=== PATIENT | male | born 1935 | race Caucasian/White ===

== ENCOUNTER 2016-08-18 10:56 | Observation (INO) | payer MEDICARE, OTHER ==
--- NOTE | ~2016-08-18 | CO ---
Unit #: [id number] #: [id number] Patient: JUANITA FALLON [id number] [address] [place], [place] [address] [id number] MR#: [id number] NAME: JUANITA FALLON ROOM: 560 Age: 81 Sex: M Admission Date: 08/18/2016 : 1935 Attending Physician: Everett Duval M.D. Primary Care Physician: uJnito Nieves M.D. Consultation Date: 08/20/2016 CONSULTATION REPORT REASON FOR CONSULTATION Midsternal chest pain and shortness of breath and new congestive heart failure. HISTORY OF PRESENT ILLNESS This is an 81-year-old white male, who is known to Dr. Ruvalcaba in our office, who has permanent atrial fibrillation, is on Pradaxa, was diagnosed this past May after having a small stroke with minimal residual, has hypertension, anemia, peripheral neuropathy. His last echo shows LVEF of 53% with no significant valvular disease. He has peripheral neuropathy. The patient said he woke up yesterday morning and had midsternal pain and it was worse when he took a deep breath and then he said later in the morning, he could not even every time he tried to take in a deep breath, it became more painful and he felt like he had increased shortness of breath. The patient said that he has been feeling like he has like a head cold and has been having some sinus drainage to clear phlegm. He denies any fever or chills. The patient said that throughout the morning, the chest pain and shortness of breath progressively worsened. He denies any pain up in his neck, bilateral jaws, shoulders, arms, or elbow. He denies that the pain radiates through to the back. Though he has had no change in his weight, he is having some lower extremity edema, but he says that is not unusual. In the emergency room, the patient's blood pressure was 129/63, his O2 saturation was 99% on room air, heart rate 89. CT of the chest for PE protocol was done and showed no PE, but bolus timing was apparently suboptimal. The patient has mentioned he has been on Pradaxa for a few weeks for his atrial fibrillation. According to the patient, he saw Dr. Ruvalcaba in April and the plan is to be on Pradaxa for few weeks and then come in later this month for setting up of cardioversion. The patient's chest x-ray showed low inspiratory volumes, but no visible infiltrate. His BNP was 144. Initial cardiac enzymes are negative. The patient was given a dose of IV Lasix to trial and he did have a good urinary output and it seemed to have improved his symptoms. The patient was also given an aspirin after his CT was obtained and Cardiology has been asked to assist with evaluation and management. PAST MEDICAL HISTORY 1. Permanent atrial fibrillation was diagnosed in 04/2016, had a small stroke back in April and was diagnosed with atrial fibrillation at that time and was started on Pradaxa. 2. Hyperlipidemia. 3. Hypertension. Unit #: [id number] #: [id number] Patient: JUANITA FALLON 4. BPH. 5. Anemia. 6. History of vertigo. 7. Peripheral neuropathy. 8. History of some type gait disturbance. 9. 03/04/2016, 2D echo, LVEF of 50% to 53%. No significant valvular disease. 10. Osteoarthritis. 11. Restless legs syndrome. 12. Shingles 3 years ago. Continues on acyclovir. 13. In 2006, had a normal stress test. 14. Obesity, 273 pounds with a BMI of 32. PAST SURGICAL HISTORY 1. Right knee replacement. 2. Cholecystectomy. 3. Left shoulder surgery. 4. Left knee surgery. HOME MEDICATIONS Zovirax 400 mg p.o. daily, Lipitor 20 mg p.o. daily, Pradaxa 150 mg p.o. b.i.d., vitamin B12 of 500 mcg p.o. daily, Mirapex 0.125 mg p.o. b.i.d. ALLERGIES No known drug allergies. SOCIAL HISTORY The patient lives with spouse. The patient has to use a cane, sometimes a walker. No tobacco, alcohol, or illicit drug abuse. FAMILY HISTORY His mother at the age of 94 with some type of cancer. His father had a stroke and at the age of 71. REVIEW OF SYSTEMS See details in HPI. PHYSICAL EXAMINATION GENERAL: Mr. Fallon is an 81-year-old white male, in no acute respiratory distress. He is awake, alert, and oriented. VITAL SIGNS: Blood pressure currently is 131/80, heart rate is 76, respirations 18, temperature 97.3, O2 saturations 95% on room air. NECK: Trachea midline. No thyromegaly or lymphadenopathy. Normal carotid upstrokes. No jugular venous distention. HEART: S1, S2. Regular rate and rhythm. No clicks, murmurs, or rubs. LUNGS: Slightly diminished, otherwise clear. ABDOMEN: Obese, soft, nontender. Positive bowel sounds present. EXTREMITIES: Pedal pulses are palpable. 1+ pedal edema. DIAGNOSTIC STUDIES LABORATORY RESULTS: Glucose is 224, BUN 18, creatinine 0.7, eGFR is above 60, sodium 140, potassium 3.8, chloride 103, CO2 of 25, calcium is 9.0, total protein 6.5, albumin 3.2, bilirubin total 0.7, AST 22, ALT 23, alkaline phosphatase is 73. WBCs 13.8, hemoglobin 12.7, hematocrit 37.7, and platelets 251. Initial cardiac enzymes; CK-MB is 1.3, troponin less than 0.05; CK-MB is 1.9, troponin less than 0.05. INR is 1.4. IMAGING STUDIES: CT of the chest for PE protocol shows suboptimal Unit #: [id number] #: [id number] Patient: LOFINK,JUANITA opacification of the pulmonary arteries. The central pulmonary arteries are normal. No filling defects to suggest pulmonary emboli. Normal aorta and cardiac chambers, some bibasilar interstitial change could represent atelectasis or bibasilar edema and benign hepatic cyst. Chest x-ray shows lungs are clear, low lung volumes. CARDIOVASCULAR STUDIES: EKG shows atrial fibrillation, ventricular rate 85 beats per minute, questionable Q-wave in V1, poor R-wave progression, also questionable Q-wave in inferior leads. IMPRESSION 1. Acute dyspnea. 2. Acute new systolic/diastolic congestive heart failure. Last 2D echo in 02/2016 shows left ventricular ejection fraction of 53%. No significant valvular disease. 3. Permanent atrial fibrillation, on Pradaxa. 4. Previous stroke, minimal residual, started on Pradaxa back in 04/2016. 5. Hypertension. 6. Hyperlipidemia. 7. Benign prostatic hypertrophy. 8. Anemia. 9. Vertigo. 10. Peripheral neuropathy. 11. Obesity. PLAN 1. The patient was started on IV Lasix and had a significant output even though his BNP was only 144. His chest x-ray did not show anything and no acute edema. It was felt like that he was in congestive heart failure due to his symptoms, which has improved since he has been started on diuresis and in addition his lower extremity swelling has diminished. We will provide the patient with CHF education. 2. We will optimize CHF medications. The patient has not been on any blood pressure medication in the past or any medication for heart rate control for his AFib, but will start him and initiate on carvedilol 3.125 mg p.o. b.i.d. and also lisinopril 2.5 mg p.o. daily. Repeat 2D echo here has been done and has technically limited, but however, LVEF appeared to be 40% to 45% which is slightly decreased from his last echo back in February of last year which showed LVEF of 53%. We will start the patient on KAROLYN inhibitor a very low dose and tell the patient to monitor for any dizziness or any extreme weakness to call the office for adjustments. 3. We will change the patient over to oral Lasix 40 mg p.o. daily. Also supplement with potassium supplement. 4. The patient's chest pain is eased off. He says his breathing has improved. He is feeling almost back to baseline and the plans are the patient is discharged home. He was to see Dr. Ruvalcaba next week on 08/28/2016. However, it has been since 2006 since he had ischemic heart disease workup, we will schedule the patient for an outpatient Lexiscan Cardiolite stress test before his cardioversion. That will be done through our office and I explained to the patient and the spouse that our office staff will call for instructions. 5. Cardiac rehab has been consulted for his new congestive heart failure and atrial fibrillation. 6. Discussed with the patient healthy lifestyle changes and modification and weight loss. Get on a weight loss program and healthy heart diet and try to exercise and that is why another reason that we consulted the Unit #: [id number] #: [id number] Patient: JUANITA FALLON cardiac rehab. 7. Further recommendations pending per Dr. Castro. Thank you very much for allowing to assist in his care. Dictated by... Trisha Jimenez/regine TD: 08/21/2016 01:48 JOB #: [id number] CONSULTATION REPORT X Eileen Martinez APRN CONSULTATION REPORT
--- NOTE | ~2016-08-18 | CR72 ---
[facility] A Service of [facility] & [facility] RADIOLOGY TEXT RESULTS PATIENT: JUANITA HERNANDEZ LOCATION: [facility] 560-01 : 35 UNIT #: [id number] AGE: [address]: Lillie Jara MD SEX: M ORDER DR: [id number] [address] [address] [id number] MR#: [id number] Acc #: [id number] NAME: JUANITA HERNANDEZ : 1935 SEX: M STUDY DATE/TIME: 08/18/2016 11:42 UNIT: SED ROOM: STUDY DESCRIPTION: CR Chest Single View Portable Attending Physician: Enmanuel Jiang M.D. Ordering Physician: Enmanuel Jiang M.D. Primary Care Physician: Junito Nieves M.D. MEDICAL IMAGING REPORT This report is preliminary unless electronic signature is present. EXAM Portable chest, 08/18/2016. HISTORY Shortness of air and chest pain with deep breathing since 5:30 this morning. COMPARISON STUDIES 06/17/2016 FINDINGS A portable view of the chest was obtained. The heart size and vascularity are normal. The lungs appear clear. There are low lung volumes. The bones are normal. IMPRESSION The study is limited by low inspiratory volume and by patient size. No infiltrates are visible. Dictated by... Conner Hall M.D. THIS IS AN ELECTRONICALLY VERIFIED REPORT Conner Hall M.D. at 08/19/2016 7:13 AM Judith TD: 08/18/2016 18:28 JOB #: [id number] MEDICAL IMAGING REPORT
--- NOTE | ~2016-08-18 | HP ---
Unit #: [id number] #: [id number] Patient: JUANITA HERNANDEZ [id number] [address] [place], [place] [address] [id number] I MR#: [id number] NAME: JUANITA HERNANDEZ ROOM: 560 Age: 81 Sex: M Admission Date: 08/18/2016 : 1935 Attending Physician: Lillie Jara M.D. Primary Care Physician: Junito Nieves M.D. HISTORY AND PHYSICAL CHIEF COMPLAINT Short of breath. HISTORY OF PRESENT ILLNESS The patient is an 81-year-old male with a past medical history of atrial fibrillation, chronic anticoagulation, hyperlipidemia, neuropathy, history of nephrolithiasis, BPH, osteoarthritis, and TIAs, who presented to the emergency department at [facility] for evaluation of the above. The patient states that he was in his usual state of health until the morning of admission around 5:30 when he experienced sharp chest pain with deep breathing. He states that he has had some drainage for the past month with an associated occasional cough. He denies any fever. He states that he has had chest pain in the mid chest with breathing. He states that it is exacerbated by deep breathing, and there are no alleviating factors. He denies any vomiting or diarrhea. No change in his weight and no lower extremity swelling. He is on Pradaxa for atrial fibrillation which he has been taking as prescribed. Upon arrival in the emergency department at [facility] his pulse was 89, blood pressure 129/63, and oxygen saturation was 99% on room air. A CT of the chest, PE protocol, was done and showed no central PE but bolus timing was apparently suboptimal. He was transferred to [facility] for further evaluation and treatment. PAST MEDICAL HISTORY 1. Admission to [facility] in February 2016 for TIA. The patient states that he was diagnosed with atrial fibrillation during that admission and was placed on Pradaxa. 2. Admission to [facility] October 09-2008, for right knee surgery. He apparently had a TIA postoperatively. 3. Atrial fibrillation followed by Dr. Ruvalcaba, maintained on chronic anticoagulation with Pradaxa. 4. Transient ischemic attack. 5. Nephrolithiasis. 6. Benign prostatic hypertrophy. 7. Neuropathy. 8. Vertigo. 9. Osteoarthritis. 10. Hyperlipidemia. PAST SURGICAL HISTORY Unit #: [id number] #: [id number] Patient: JUANITA HERNANDEZ 1. Bilateral knee surgery. 2. Cholecystectomy. SOCIAL HISTORY The patient lives with his . He has a cane and a walker. There is no tobacco use. FAMILY HISTORY Notable for his mother dying at the age of 94. She had cancer. His father had a stroke and at the age of 71. ALLERGIES No known allergies. HOME MEDICATIONS 1. Zovirax. 2. Lipitor. 3. Pradaxa. 4. Vitamin B12. Home medications will need to be reviewed and verified. REVIEW OF SYSTEMS A complete review of systems is negative except as indicated in the History of Present Illness. PHYSICAL EXAMINATION VITAL SIGNS: Temperature is 97.8, pulse 89, respirations 18, blood pressure 129/63, and oxygen saturation is 99% on room air. GENERAL: Patient is a very pleasant male who is awake, alert, and in no acute distress. HEENT: Head is atraumatic. Mucous membranes are moist. NECK: Supple. Trachea is midline. CARDIOVASCULAR: Irregular. LUNGS: Clear to auscultation bilaterally with no increased work of breathing. ABDOMEN: Soft and nontender with bowel sounds present in all four quadrants. EXTREMITIES: Nontender with no pedal edema. NEUROLOGIC: Patient is awake and alert. He follows commands. PSYCHIATRIC: Mood and affect are normal. Patient is cooperative. SKIN: Skin of examined areas is warm and dry. DIAGNOSTIC STUDIES LABORATORY: Complete blood count is essentially normal. INR is 1.4. Comprehensive metabolic panel notable for a glucose of 162 and albumin is 3.4. BNP is 144. Troponin is less than 0.05. IMAGING: Chest x-ray shows low inspiratory volumes but no visible infiltrate. CT of the chest, PE protocol, had suboptimal bolus timing but showed no central PE. CARDIOLOGY: EKG shows atrial fibrillation with a rate of 85 beats per minute. ASSESSMENT The patient is an 81-year-old male with: 1. Chest pain, pleuritic in nature. The patient had a CT of the chest, Unit #: [id number] #: [id number] Patient: JUANITA HERNANDEZ pulmonary embolism protocol, that showed no central pulmonary embolism. He is on chronic anticoagulation with Pradaxa that he has been taking as prescribed. 2. Atrial fibrillation, currently rate controlled, followed by Dr. Ruvalcaba. 3. Chronic anticoagulation with Pradaxa. 4. Hyperlipidemia. 5. Neuropathy. 6. History of nephrolithiasis. 7. History of transient ischemic attack. 8. Benign prostatic hypertrophy. 9. Osteoarthritis. PLAN 1. Admit to intermediate level for observation. 2. Healthy heart diet. 3. Supplemental oxygen 2-4 liters to maintain saturations greater than 92%. 4. Check V/Q scan. 5. P.r.n. Tylenol. 6. Serial cardiac enzymes. 7. Fasting lipid panel. 8. Repeat labs in the morning. 9. Additional workup and consultants based on above. 1. Dictated by Erik Mcknight/george TD: 08/18/2016 20:38 JOB #: [id number] HISTORY AND PHYSICAL X Lillie Jara MD X HISTORY AND PHYSICAL
--- NOTE | ~2016-08-18 | DS ---
Unit #: [id number] #: [id number] Patient: JUANITA HERNANDEZ [id number] [address] [place], [place] [address] [id number] I MR#: [id number] NAME: JUANITA HERNANDEZ ROOM: 560 Age: 81 Sex: M Admission Date: 08/18/2016 : 1935 Discharge Date: 08/20/2016 Attending Physician: Everett Duval M.D. Primary Care Physician: Junito Nieves M.D. DISCHARGE SUMMARY DISCHARGE DIAGNOSES 1. Acute systolic heart failure. 2. Dyspnea. 3. Atypical chest pain. 4. Atrial fibrillation on chronic anticoagulation. HOSPITAL COURSE Patient is an 81-year-old male who presented to [facility] emergency department with complaint of shortness of breath. It was associated with some chest discomfort and significant orthopnea. Patient initially underwent CT, PE protocol, that showed no PE and major vessels though was noted to have a suboptimal bolus timing. Patient was admitted for worsening shortness of breath and his complaint of chest pain. Upon evaluation by me, the patient appeared in some significant respiratory distress though oxygen saturations were good. I ordered a 2D echo, which revealed left ventricular systolic function that was mildly reduced with an EF of 40% to 45%. The patient denied any history of congestive heart failure and the patient was given 40 mg of IV Lasix, which greatly helped his symptoms. Approximately six hours later, the dose of Lasix was repeated and, ultimately, the patient was able to lie flat without difficulties. Given the new diagnosis of heart failure, cardiology consult was obtained. Cardiology started the patient on an outpatient regimen of medications for his heart failure. He was also set up for outpatient followup for stress testing. Additionally, there was a plan for an outpatient DC cardioversion as well. This cardioversion had been previously scheduled. DISCHARGE MEDICATIONS 1. Pradaxa 150 mg p.o. b.i.d. 2. Mirapex 0.15 mg p.o. b.i.d. 3. Zovirax 400 mg daily. 4. Lipitor 20 mg daily. 5. Vitamin B12 500 mcg daily. 6. Lisinopril 2.5 mg daily. 7. Coreg 3.125 mg p.o. b.i.d. 8. Lasix 40 mg p.o. daily. 9. Potassium chloride 20 mEq p.o. daily. FOLLOWUP Patient should follow up with Dr. Ruvalcaba on August 28 at 3:00 p.m. There has also been a cardiac rehab consult placed with appointment to be determined. Unit #: [id number] #: [id number] Patient: JUANITA HERNANDEZ Dictated by... Erik Hilliard/ed TD: 08/21/2016 06:13 JOB #: [id number] DISCHARGE SUMMARY X Everett Duval MD X DISCHARGE SUMMARY
--- NOTE | ~2016-08-18 | EKG ---
PATIENT: JUANITA HERNANDEZ UNIT #: [id number] Ventricular Rate: 85 BPM Atrial Rate: 375 BPM QRS Duration: 74 ms Q-T Interval: 342 ms QTC Calculation(Bezet): 406 ms Calculated R [place]: -8 degrees Calculated T [place]: 38 degrees Diagnosis Line: Atrial fibrillation Diagnosis Line: Low voltage QRS Diagnosis Line: Abnormal ECG Diagnosis Line: When compared with ECG of 09-MAR-2016 09:46, Diagnosis Line: Nonspecific T wave abnormality no longer evident Diagnosis Line: in Lateral leads Diagnosis Line: Confirmed by ALIZE FRANCIS MD ([id number]) on Diagnosis Line: 10/02/2016 7:00:02 AM INTERPRETING : AMAURY
--- NOTE | ~2016-08-18 | CT16 ---
[facility] A Service of [facility] & [facility] RADIOLOGY TEXT RESULTS PATIENT: JUANITA HERNANDEZ LOCATION: C5 560-01 : 35 UNIT #: [id number] AGE: [address]: Everett Duval MD SEX: M ORDER DR: [id number] [address] [address] [id number] E MR#: [id number] Acc #: [id number] NAME: JUANITA HERNANDEZ : 1935 SEX: M STUDY DATE/TIME: 08/18/2016 1201 UNIT: SED ROOM: STUDY DESCRIPTION: CT Angio Chest for PE Attending Physician: Enmanuel Jiang M.D. Ordering Physician: Enmanuel [id number] Apolinar Jiang Primary Care Physician: Junito Nieves M.D. MEDICAL IMAGING REPORT This report is preliminary unless electronic signature is present. EXAM CT angiogram of the chest for PE protocol 08/18/2016 1201 hours HISTORY 81-year-old man complaining of shortness of air and chest pain with deep inspiration since 0530 hours today. Wheezing and extreme shortness of air. COMPARISON 08/18/[address] scan TECHNIQUE Dynamic helical CT angiographic images were obtained from the thoracic inlet through the adrenal glands. 3-D sagittal and coronal reconstructions were performed. Contrast was Isovue-370 100 mL IV. Total exam DLP 858 mGy-cm. This CT exam was performed with one or more of the following radiation dose reduction techniques: automatic exposure control, adjustment of mA and/or kV according to patient size, and iterative reconstruction. FINDINGS Images through the thoracic inlet demonstrate no thyroid mass or supraclavicular adenopathy. Images through the chest demonstrate moderately good opacification of the central pulmonary arteries. The peripheral pulmonary arteries are not well opacified and evaluation is limited. The pulmonary arteries are normal in caliber. No central filling defects are seen to suggest the presence of pulmonary emboli. Peripheral small clots cannot be excluded given this technique. The aorta is normal in caliber. There is no pathologic mediastinal, hilar or axillary adenopathy. The lung window images demonstrate basilar vascular crowding with linear interstitial change at the left lung base greater than right lung base. [facility] A Service of [facility] & [facility] RADIOLOGY TEXT RESULTS PATIENT: JUANITA HERNANDEZ LOCATION: C5B 560-01 : 35 UNIT #: [id number] AGE: [address]: Everett Duval MD SEX: M ORDER DR: Atelectasis is favored over edema or pneumonia. There is no definite pleural effusion. Benign calcified granulomatous changes are present. The upper lungs are clear of acute densities. Limited views through the upper abdomen demonstrate benign hepatic cysts in the liver. The spleen is normal in size. There is fatty atrophy of the pancreas without acute inflammation. Cholecystectomy change. The adrenal glands are normal. IMPRESSION 1. There is suboptimal opacification of the pulmonary arteries. The central pulmonary arteries are normal in caliber with no filling defects to suggest the presence of pulmonary emboli. It is difficult or impossible to evaluate the peripheral vessels particularly at the lung bases. There is no suggestion of clot. 2. Normal caliber aorta and cardiac chambers. 3. There is bibasilar interstitial change which could represent atelectasis or basilar edema. There is no dense airspace opacity or pleural fluid. 4. Benign hepatic cysts. 5. Cholecystectomy change. 6. Diffuse fatty atrophy of the pancreas. STAT * RESULT Dictated by... Hellen Kumar M.D. THIS IS AN ELECTRONICALLY VERIFIED REPORT Hellen Kumar M.D. at 08/19/2016 9:25 AM Denisse TD: 08/18/2016 12:52 JOB #: [id number] MEDICAL IMAGING REPORT
[~2016-08-18 10:56] MED LIST: ACYCLOVIR PO; ALBUTEROL20 ml INH; ASPIRIN PO; ASPIRIN81 M1 PO; ASPIRINEC PO; AVODART0.5 MG PO; B-12500 MCG PO; BAYER CHEWABLE81 MG PO; BPH MED; CHOL MED; COUMADIN PO; DOCUSATE SODIU100 MG PO; FLOMAX0.4 M1 PO; LIPITOR20 MG PO; LOVASTATIN PO; MEVACOR PO; MULTI-VITAMIN1 TAB PO; NORCO 5/325 TAB1 TAB PO; PERCOCET5/325 PO; PRADAXA150 MG PO; PREDNISONE PO; TAMSULOSIN PO; TESSALON PERLE100 M1 DOB; UROXATRAL10 MG PO; VITAMIN C PO; VOLTAREN50 MG PO; ZOVIRAX800 MG PO
[2016-08-18 11:11] LABS: BASOPHIL% 0.4 % (0-2.5); DIFF IND NO; EOSINOPHIL# 0.1 X10e3 (0-0.7); EOSINOPHIL% 0.7 % (0.0-7.0); HEMATOCRIT 40.3 % (38.0-50.0); HEMOGLOBIN 13.5 gm/dL (13.0-16.0); LYMPHOCYTE# 0.9 X10e3 (1.0-3.5); LYMPHOCYTE% 9.2 % (17.0-45.0); MEAN CELL VOLUME 90.6 FL (83-96); MEAN CORPUSCULAR HEMOGLOBIN 30.4 PG (28-34); MEAN CORPUSCULAR HGB CONC 33.6 g/dL (30-36); MEAN PLATELET VOLUME 6.8 FL (6.5-11.5); MONOCYTE# 0.7 X10e3 (0-1.0); MONOCYTE% 7.5 % (3.0-12.0); NEUTROPHIL# 7.7 X10e3 (1.5-7.1); NEUTROPHIL% 82.2 % (40-75); PLATELET COUNT 218 X10e3 (140-420); RED BLOOD COUNT 4.44 X10e (3.90-5.60); RED CELL DISTRIBUTION WIDTH 14.5 % (11.0-15.5); WHITE BLOOD COUNT 9.3 X10e3 (4.0-10.5)
[2016-08-18 11:25] LABS: INR 1.4; PROTHROMBIN TIME (PATIENT) 15.6 SECONDS (9.5-12.4)
[2016-08-18 11:32] LABS: PARTIAL THROMBOPLASTIN TIME 60.3 SECONDS (25.6-38.1)
[2016-08-18 11:34] LABS: ALBUMIN SERUM 3.4 g/dL (3.5-5.0); ALKALINE PHOSPHATASE 75 U/L (32-92); ALT (SGPT) 18 U/L (10-40); AST (SGOT) 21 U/L (10-42); BILIRUBIN, DIRECT 0.2 mg/dL (0.0-0.2); BILIRUBIN,INDIRECT 0.9 mg/dL (0.0-0.9); BILIRUBIN,TOTAL 1.1 mg/dL (0.2-2.0); BLOOD UREA NITROGEN 12 mg/dL (9-23); CALCIUM SERUM 8.5 mg/dL (8.4-10.2); CARBON DIOXIDE 27 mmol/L (22-31); CHLORIDE 104 mmol/L (100-111); CREATININE SERUM 0.8 mg/dL (0.6-1.4); GLOM FILT RATE Estimated ABOVE60 mL/min (>60); GLUCOSE FASTING 162 mg/dL (70-110); POTASSIUM 4.1 mmol/L (3.5-5.1); PROTEIN TOTAL SERUM 6.9 g/dL (6.0-8.3); SODIUM 136 mmol/L (135-145)
[2016-08-18 12:34] LABS: POC - CKMB 1.9 ng/mL (0.0-7.9); POC - TROPONIN <0.05 ng/mL (<=0.05)
[2016-08-18 13:14] LABS: POC - CKMB 1.3 ng/mL (0.0-7.9); POC - MYOGLOBIN 89.7 ng/mL (0.0-169.0); POC - TROPONIN <0.05 ng/mL (<=0.05)
[2016-08-18] MEDS ORDERED: MIRAPEX0.125 MG PO (21:15)
[2016-08-18 23:51] LABS: CK TOTAL 37 IU/L (36-174)
[2016-08-19 04:27] LABS: HEMATOCRIT 37.3 % (38.0-50.0); HEMOGLOBIN 12.8 gm/dL (13.0-16.0); MEAN CELL VOLUME 89.3 FL (83-96); MEAN CORPUSCULAR HEMOGLOBIN 30.6 PG (28-34); MEAN CORPUSCULAR HGB CONC 34.2 g/dL (30-36); MEAN PLATELET VOLUME 6.7 FL (6.5-11.5); RED BLOOD COUNT 4.17 X10e (3.90-5.60); RED CELL DISTRIBUTION WIDTH 14.5 % (11.0-15.5); WHITE BLOOD COUNT 11.9 X10e3 (4.0-10.5)
[2016-08-19 07:53] LABS: ALBUMIN SERUM 3.2 g/dL (3.5-5.0); ALKALINE PHOSPHATASE 73 U/L (32-92); ALT (SGPT) 16 U/L (10-40); AST (SGOT) 20 U/L (10-42); BILIRUBIN,TOTAL 1.5 mg/dL (0.2-2.0); BLOOD UREA NITROGEN 18 mg/dL (9-23); CALCIUM SERUM 8.4 mg/dL (8.4-10.2); CARBON DIOXIDE 24 mmol/L (22-31); CHLORIDE 108 mmol/L (100-111); CK TOTAL 37 IU/L (36-174); CREATININE SERUM 0.8 mg/dL (0.6-1.4); GLOM FILT RATE Estimated ABOVE60 mL/min (>60); GLUCOSE FASTING 134 mg/dL (70-110); POTASSIUM 3.8 mmol/L (3.5-5.1); PROTEIN TOTAL SERUM 6.2 g/dL (6.0-8.3); SODIUM 134 mmol/L (135-145)
[2016-08-20 08:04] LABS: HEMATOCRIT 37.7 % (38.0-50.0); HEMOGLOBIN 12.7 gm/dL (13.0-16.0); MEAN CORPUSCULAR HEMOGLOBIN 29.9 PG (28-34); MEAN CORPUSCULAR HGB CONC 33.6 g/dL (30-36); RED BLOOD COUNT 4.24 X10e (3.90-5.60); RED CELL DISTRIBUTION WIDTH 14.3 % (11.0-15.5); WHITE BLOOD COUNT 13.8 X10e3 (4.0-10.5)
[2016-08-20 08:41] LABS: ALBUMIN SERUM 3.2 g/dL (3.5-5.0); ALKALINE PHOSPHATASE 73 U/L (32-92); ALT (SGPT) 23 U/L (10-40); AST (SGOT) 22 U/L (10-42); BILIRUBIN,TOTAL 0.7 mg/dL (0.2-2.0); BLOOD UREA NITROGEN 18 mg/dL (9-23); BUN/CREATININE RATIO 25.71; CARBON DIOXIDE 25 mmol/L (22-31); CHLORIDE 103 mmol/L (100-111); CREATININE SERUM 0.7 mg/dL (0.6-1.4); GLOM FILT RATE Estimated ABOVE60 mL/min (>60); GLUCOSE FASTING 224 mg/dL (70-110); POTASSIUM 3.8 mmol/L (3.5-5.1); PROTEIN TOTAL SERUM 6.5 g/dL (6.0-8.3); SODIUM 140 mmol/L (135-145)
[2016-08-20] MEDS ORDERED: LASIX PO (14:32)
[2016-08-20] MEDS ORDERED: LISINOPRIL2.5 MG PO (14:33)
[2016-08-20] MEDS ORDERED: COREG3.125 MG PO (14:33)
[2016-08-20] MEDS ORDERED: K-DUR20 ME1 PO (14:33)
== END 2016-08-20 15:23 | disposition home or self-care (01) ==
LOC: SED 10:56 → C5B 19:00
PROVIDERS: Emergency Medicine; Family Medicine; Internal Medicine
DX: I11.0 Hypertensive heart disease with heart failure (principal); I50.21 Acute systolic (congestive) heart failure; I48.2 Chronic atrial fibrillation; Z79.01 Long term (current) use of anticoagulants; R06.00 Dyspnea, unspecified; R07.89 Other chest pain; Z23 Encounter for immunization; E78.5 Hyperlipidemia, unspecified; N40.0 Benign prostatic hyperplasia without lower urinary tract symptoms; E66.9 Obesity, unspecified; Z68.32 Body mass index [BMI] 32.0-32.9, adult; Z80.9 Family history of malignant neoplasm, unspecified; Z82.3 Family history of stroke; Z90.49 Acquired absence of other specified parts of digestive tract; G62.9 Polyneuropathy, unspecified; M19.90 Unspecified osteoarthritis, unspecified site; Z86.73 Personal history of transient ischemic attack (TIA), and cerebral infarction without residual deficits
CPT/HCPCS: 36415; 71010; 71275; 80048; 80053; 80076; 82550; 82553; 83874; 83880; 84484; 85025; 85027; 85610; 85730; 90732; 93005; 93306; 96374; 96375; 96376; 99285; G0009; G0378; J1885; J1940; J2930; Q9967

== ENCOUNTER → 2016-08-25 | Outpatient (CLI) | payer MEDICARE, OTHER ==
[~2016-08-25] MED LIST changes: +COREG3.125 MG PO; +K-DUR20 ME1 PO; +LASIX PO; +LISINOPRIL2.5 MG PO; +MIRAPEX0.125 MG PO
--- NOTE | ~2016-08-25 | TH ---
Unit #: [id number] #: [id number] Patient: JUANITA HERNANDEZ [id number] [address] [address] [id number] MR#: [id number] NAME: JUANITA HERNANDEZ : 1935 SEX: M STUDY DATE/TIME: UNIT: [facility] ROOM: STUDY DESCRIPTION: Lexiscan stress test - Nuclear Attending Physician: Joy Castro M.D. Referring Physician: Joy Castro M.D. Primary Care Physician: Junito Nieves M.D. CARDIOLOGY REPORT PROCEDURE PERFORMED Lexiscan Cardiolite stress test - Nuclear portion. PROCEDURE Using technetium 99m-labeled Cardiolite, rest and stress SPECT images were obtained. Multiple SPECT images were obtained in various views, including horizontal and vertical long axis and short axis views of the left ventricle. Images were obtained by gated SPECT method. The patient was administered 10.63 mCi of Cardiolite at rest. The patient was administered 33.9 mCi of Cardiolite after Lexiscan infusion was completed. On the stress images, there is normal perfusion noted. The rest images show normal perfusion. Comparing the rest and stress images, there is no stress-induced ischemia noted. The left ventricular ejection fraction is calculated to be 63%. There is no focal wall motion abnormality seen. CONCLUSION 1. No stress-induced ischemia noted. 2. The left ventricular ejection fraction is calculated to be 63%. 3. There is no focal wall motion abnormality seen. 4. The left ventricular size is small. 5. Normal Lexiscan Cardiolite stress test. Dictated by... Erik Velázquez/gunner TD: 08/27/2016 08:14 JOB #: [id number] CARDIOLOGY REPORT X Joy Castro MD <ELECTRONICALLY SIGNED> 01/03/17 1429 CARDIOLOGY REPORT
--- NOTE | ~2016-08-25 | ST ---
Unit #: [id number] #: [id number] Patient: JUANITA HERNANDEZ [id number] [address] [address] [id number] O MR#: [id number] NAME: JUANITA HERNANDEZ : 1935 SEX: M STUDY DATE/TIME: 08/25/2016 UNIT: [facility] ROOM: STUDY DESCRIPTION: Lexiscan stress test Attending Physician: Joy Castro M.D. Referring Physician: Joy Castro M.D. Primary Care Physician: Junito Nieves M.D. CARDIOLOGY REPORT PROCEDURE PERFORMED EKG portion of a Lexiscan Cardiolite stress test. REASON FOR EXAM Atrial fibrillation. DISCUSSION Baseline EKG reveals atrial fibrillation with a ventricular rate of 76 beats per minute. Nonspecific ST-T wave changes noted with some flattening of the T waves. A total of 0.4 mg of Lexiscan was injected per protocol, followed by Cardiolite. There were no complaints of chest pain. There were no sustained arrhythmias except for baseline atrial fibrillation. There were no ST or T wave changes to suggest ischemia. The maximal blood pressure was 149/74 mmHg with a maximal heart rate of 112 beats per minute. The test was stopped due to protocol completion. IMPRESSION 1. Negative EKG portion of Lexiscan Cardiolite stress test. 2. There were no complaints of chest pain. 3. There were no sustained arrhythmias noted except for baseline atrial fibrillation. 4. There were no ST or T wave changes to suggest ischemia. 5. Please correlate with Cardiolite images. Dictated by... Manuela Nathan APRN for Joy Castro M.D. TR/gunner TD: 08/25/2016 13:32 JOB #: [id number] Unit #: [id number] #: [id number] Patient: JUANITA HERNANDEZ CARDIOLOGY REPORT X CARDIOLOGY REPORT
== END | disposition home or self-care (01) ==
LOC: CNUC 10:17
DX: I50.9 Heart failure, unspecified (principal); R07.9 Chest pain, unspecified
CPT/HCPCS: 78452; 93017; A9500; J2785

== ENCOUNTER 2016-09-01 13:51 | Emergency (ER) | payer MEDICARE, OTHER ==
--- NOTE | ~2016-09-01 | EKG ---
PATIENT: JUANITA HERNANDEZ UNIT #: [id number] Ventricular Rate: 80 BPM Atrial Rate: 394 BPM QRS Duration: 74 ms Q-T Interval: 354 ms QTC Calculation(Bezet): 408 ms Calculated R [place]: 6 degrees Calculated T [place]: 63 degrees Diagnosis Line: Atrial fibrillation Diagnosis Line: Low voltage QRS Diagnosis Line: Inferior infarct , age undetermined Diagnosis Line: Abnormal ECG Diagnosis Line: When compared with ECG of 18-AUG-2016 10:26, Diagnosis Line: (unconfirmed) Diagnosis Line: Inferior infarct is now Present Diagnosis Line: Nonspecific T wave abnormality now evident in Diagnosis Line: Lateral leads Diagnosis Line: Confirmed by DAVID CHEUNG MD ([id number]) on 09/02/2016 Diagnosis Line: 4:53:58 AM INTERPRETING MD: JONATAN GAN
--- NOTE | ~2016-09-01 | CR72 ---
[facility] A Service of [facility] RADIOLOGY TEXT RESULTS PATIENT: JUANITA HERNANDEZ LOCATION: [facility] : 35 UNIT #: [id number] AGE: [address]: Narciso Fong MD SEX: M ORDER DR: [id number] [facility] [address] [place], [place] [address] [id number] E MR#: [id number] Acc #: [id number] NAME: JUANITA HERNANDEZ : 1935 SEX: M STUDY DATE/TIME: 09/01/2016 14:11 UNIT: [facility] ROOM: STUDY DESCRIPTION: CR Chest Single View Portable Attending Physician: Narciso Fong M.D. Ordering Physician: Narciso Fong M.D. Primary Care Physician: Junito Nieves M.D. MEDICAL IMAGING REPORT This report is preliminary unless electronic signature is present EXAM Frontal chest 09/01/2016 INDICATIONS Shortness of air in an 81-year-old male, congestive heart failure, symptoms began today. History of stroke in 2016. Frontal chest was performed. COMPARISON STUDIES Correlation is made with CT 08/18/2016 FINDINGS Cardiac silhouette is enlarged and stable. Lung volumes are low. There is bronchovascular crowding versus mild central vascular congestion. Small left effusion and probable left base atelectasis or less likely faint infiltrate. Probable faint atelectasis or less likely infiltrate in the right lung base. No pneumothorax. IMPRESSION 1. Cardiomegaly with low lung volumes and bronchovascular crowding versus mild central vascular congestion. 2. Trace to small left and trace right effusions with bibasilar atelectasis or faint infiltrates left greater than right. Dictated by... Сергей Washburn M.D. THIS IS AN ELECTRONICALLY VERIFIED REPORT Сергей Washburn M.D. at 09/02/2016 9:11 AM Chirag TD: 09/01/2016 17:56 [facility] A Service of [facility] RADIOLOGY TEXT RESULTS PATIENT: JUANITA HERNANDEZ LOCATION: [facility] #: [id number] : 35 UNIT #: [id number] AGE: [address]: Narciso Fong MD SEX: M ORDER DR: JOB #: [id number] MEDICAL IMAGING REPORT Page 1 of 1 COPY
[2016-09-01 12:11] LABS: BASOPHIL# 0.1 X10e3 (0-0.3); BASOPHIL% 0.7 % (0-2.5); EOSINOPHIL# 0.1 X10e3 (0-0.7); EOSINOPHIL% 0.5 % (0.0-7.0); HEMATOCRIT 37.8 % (38.0-50.0); HEMOGLOBIN 12.7 gm/dL (13.0-16.0); LYMPHOCYTE# 1.6 X10e3 (1.0-3.5); LYMPHOCYTE% 10.8 % (17.0-45.0); MEAN CELL VOLUME 88.5 FL (83-96); MEAN CORPUSCULAR HEMOGLOBIN 29.7 PG (28-34); MEAN CORPUSCULAR HGB CONC 33.6 g/dL (30-36); MEAN PLATELET VOLUME 6.8 FL (6.5-11.5); MONOCYTE# 1.3 X10e3 (0-1.0); MONOCYTE% 8.6 % (3.0-12.0); NEUTROPHIL# 11.8 X10e3 (1.5-7.1); NEUTROPHIL% 79.4 % (40-75); PLATELET COUNT 330 X10e3 (140-420); RED BLOOD COUNT 4.27 X10e (3.90-5.60); RED CELL DISTRIBUTION WIDTH 14.6 % (11.0-15.5); WHITE BLOOD COUNT 14.9 X10e3 (4.0-10.5)
[2016-09-01 12:12] LABS: DIFF IND NO
[2016-09-01 12:36] LABS: ALBUMIN SERUM 3.1 g/dL (3.5-5.0); ALKALINE PHOSPHATASE 85 U/L (32-92); ALT (SGPT) 25 U/L (10-40); AST (SGOT) 26 U/L (10-42); BILIRUBIN, DIRECT 0.3 mg/dL (0.0-0.2); BILIRUBIN,INDIRECT 0.8 mg/dL (0.0-0.9); BILIRUBIN,TOTAL 1.1 mg/dL (0.2-2.0); BLOOD UREA NITROGEN 17 mg/dL (9-23); BUN/CREATININE RATIO 18.88; CALCIUM SERUM 8.3 mg/dL (8.4-10.2); CARBON DIOXIDE 27 mmol/L (22-31); CHLORIDE 103 mmol/L (100-111); CREATININE SERUM 0.9 mg/dL (0.6-1.4); GLOM FILT RATE Estimated ABOVE60 mL/min (>60); GLUCOSE FASTING 113 mg/dL (70-110); POTASSIUM 4.1 mmol/L (3.5-5.1); PROTEIN TOTAL SERUM 7.4 g/dL (6.0-8.3); SODIUM 135 mmol/L (135-145)
[2016-09-01 14:30] LABS: POC - CKMB 1.5 ng/mL (0.0-7.9); POC - TROPONIN <0.05 ng/mL (<=0.05)
[2016-09-01 15:03] LABS: POC - CKMB 1.6 ng/mL (0.0-7.9); POC - TROPONIN <0.05 ng/mL (<=0.05)
== END 2016-09-01 15:13 | disposition home or self-care (01) ==
LOC: CED 13:51
PROVIDERS: Emergency Medicine
DX: I48.91 Unspecified atrial fibrillation (principal); I50.9 Heart failure, unspecified; Z79.899 Other long term (current) drug therapy
CPT/HCPCS: 36415; 71010; 80048; 80076; 82553; 84484; 85025; 93005; 96372; 99284; J1940

== ENCOUNTER 2016-11-05 04:32 | Emergency (ER) | payer MEDICARE, OTHER ==
--- NOTE | ~2016-11-05 | CR141 ---
[facility] A Service of [facility] & [facility] RADIOLOGY TEXT RESULTS PATIENT: JUANITA HERNANDEZ LOCATION: [facility] : 35 UNIT #: [id number] AGE: [address]: Ubaldo Estrada MD SEX: M ORDER DR: [id number] [place] [id number] E MR#: [id number] Acc #: [id number] NAME: JUANITA HERNANDEZ : 1935 SEX: M STUDY DATE/TIME: 11/05/2016 5:04 UNIT: SED ROOM: STUDY DESCRIPTION: CR Hand Min 3 Views Lt Attending Physician: Ubaldo Estrada M.D. Ordering Physician: Ubaldo Estrada M.D. Primary Care Physician: Junito Nieves M.D. MEDICAL IMAGING REPORT This report is preliminary unless electronic signature is present. EXAM Left hand INDICATION Left hand pain for 2 days. FINDINGS 3 views of the left hand without comparison. There is no acute fracture or dislocation. Alignment is anatomic. IMPRESSION No acute traumatic findings. Dictated by... Alan Lazaro M.D. THIS IS AN ELECTRONICALLY VERIFIED REPORT Alan Lazaro M.D. at 11/05/2016 11:23 PM CONNOR/vivi TD: 11/05/2016 06:29 JOB #: [id number] MEDICAL IMAGING REPORT Page 1 of 1
--- NOTE | ~2016-11-05 | CR281 ---
[facility]. [facility] A Service of [facility] & [facility] RADIOLOGY TEXT RESULTS PATIENT: JUANITA HERNANDEZ LOCATION: [facility] : 35 UNIT #: [id number] AGE: [address]: Ubaldo Estrada MD SEX: M ORDER DR: [id number] [place] [id number] E MR#: [id number] Acc #: [id number] NAME: JUANITA HERNANDEZ : 1935 SEX: M STUDY DATE/TIME: 11/05/2016 5:04 UNIT: SED ROOM: STUDY DESCRIPTION: CR Wrist Min 3 View Lt Attending Physician: Ubaldo Estrada M.D. Ordering Physician: Ubaldo Estrada M.D. Primary Care Physician: Junito Nieves M.D. MEDICAL IMAGING REPORT This report is preliminary unless electronic signature is present. EXAM Left wrist INDICATIONS Left wrist pain. Injured while trying to open a door. FINDINGS 3 views of the left wrist without comparison. There is no acute fracture or dislocation. There is some arthritis at the first carpometacarpal articulation. There is either an old ulnar styloid fracture or ununited ulnar epiphyses. Ulnar styloid emphasis. IMPRESSION Negative for fracture. Dictated by... Alan Lazaro M.D. THIS IS AN ELECTRONICALLY VERIFIED REPORT Alan Lazaro M.D. at 11/05/2016 11:23 PM Messi TD: 11/05/2016 06:26 JOB #: [id number] MEDICAL IMAGING REPORT Page 1 of 1
== END 2016-11-05 05:49 | disposition home or self-care (01) ==
LOC: SED 04:32
DX: S63.522A Sprain of radiocarpal joint of left wrist, initial encounter (principal); X58.XXXA Exposure to other specified factors, initial encounter; Y93.89 Activity, other specified; Y92.9 Unspecified place or not applicable; I48.91 Unspecified atrial fibrillation; Z79.899 Other long term (current) drug therapy
CPT/HCPCS: 29125; 73110; 73130; 99283

== ENCOUNTER 2017-01-15 09:36 | Emergency (ER) | payer MEDICARE, OTHER ==
[~2017-01-15] VITALS: Ht 182.9 cm; Wt 117.9 kg
--- NOTE | ~2017-01-15 | CR63 ---
[facility] A Service of [facility] & [facility] RADIOLOGY TEXT RESULTS PATIENT: JUANITA HERNANDEZ LOCATION: [facility] : 35 UNIT #: [id number] AGE: [address]: Fallon Henson MD SEX: M ORDER DR: [id number] [address] [address] [id number] E MR#: [id number] Acc #: [id number] NAME: JUANITA HERNANDEZ : 1935 SEX: M STUDY DATE/TIME: 01/15/2017 10:03 UNIT: SED ROOM: STUDY DESCRIPTION: CR Chest 2 View Attending Physician: Fallon Henson M.D. Ordering Physician: Fallon Henson M.D. Primary Care Physician: Junito Nieves M.D. MEDICAL IMAGING REPORT This report is preliminary unless electronic signature is present. EXAM Chest 2 views, 01/15/2017 10:03 hours HISTORY Trauma. Patient fell off last step of wooden stairs at home 2 days ago. Low back pain and right rib pain. COMPARISON Chest film, 09/06/2016 FINDINGS Upright PA and lateral views of the chest demonstrate heart size at the upper limits of normal unchanged. The aortic contours are normal. The lungs are clear. There is trace blunting of the left costophrenic sulcus unchanged. This could represent pleural thickening or stable trace effusion. Question is raised of cortical stepoff of the posterior right seventh rib which could represent a fracture. There is a compression deformity at T11 approximately 30% which is new. IMPRESSION 1. No acute cardiopulmonary findings. There is mild blunting of the left costophrenic sulcus unchanged from 09/06/2016. 2. There is mild wedge compression fracture of T11 approximately 30%. This is new from 09/06/2016 and could be acute. 3. Question cortical step off at the posterior mid right seventh rib which could indicate a small right rib fracture. Consider rib films if indicated clinically. STAT * RESULT Dictated by... [facility] A Service of [facility] & [facility] RADIOLOGY TEXT RESULTS PATIENT: JUANITA HERNANDEZ LOCATION: [facility] : 35 UNIT #: [id number] AGE: [address]: Fallon Henson MD SEX: M ORDER DR: Hellen Kumar M.D. THIS IS AN ELECTRONICALLY VERIFIED REPORT Heleln Kumar M.D. at 01/15/2017 2:37 PM Roseanna TD: 01/15/2017 10:56 JOB #: [id number] MEDICAL IMAGING REPORT Page 1 of 1
--- NOTE | ~2017-01-15 | CT57 ---
[facility] A Service of [facility] & [facility] RADIOLOGY TEXT RESULTS PATIENT: JUANITA HERNANDEZ LOCATION: [facility] : 35 UNIT #: [id number] AGE: [address]: Fallon Henson MD SEX: M ORDER DR: [id number] [address] [address] [id number] E MR#: [id number] Acc #: [id number] NAME: JUANITA HERNANDEZ : 1935 SEX: M STUDY DATE/TIME: 01/15/2017 12:02 UNIT: SED ROOM: STUDY DESCRIPTION: CT Chest Wo Cont Attending Physician: Fallon Henson M.D. Ordering Physician: Fallon Henson M.D. Primary Care Physician: Junito Nieves M.D. MEDICAL IMAGING REPORT This report is preliminary unless electronic signature is present. EXAM Chest CT 01/15/2017 INDICATIONS Patient had a fall today. Patient has right-sided chest pain since that time with some dizziness. TECHNIQUE Axial images were obtained through the chest without contrast. Multiplanar reformats were obtained. This CT exam was performed with one or more of the following radiation dose reduction techniques: automatic exposure control, adjustment of mA and/or kV according to patient size, and iterative reconstruction. COMPARISON Comparison made with 08/18/2016. FINDINGS There is no pleural or pericardial effusion. There is no adenopathy. There is coronary artery disease. Heart is enlarged. There is posterior pleural thickening bilaterally which is unchanged. There is some atelectasis in the lower lobes. Lungs are otherwise clear. No pneumothorax. There is a right laterals subacute 6th rib fracture. This is new since the prior chest CT. Additionally, there is a mild compression fracture of T11 that is new. This could be acute to subacute. Subtle fat stranding adjacent to the T12 vertebral body suggest a more acute injury. For description of findings in the upper abdomen, please see the abdomen and pelvis CT report dictated separately. IMPRESSION 1. Subacute right lateral sixth rib fracture, new since 08/28/2016. 2. Mild compression deformity of T11, also new since that prior chest STS. [facility] A Service of [facility] & [facility] RADIOLOGY TEXT RESULTS PATIENT: JUANITA HERNANDEZ LOCATION: [facility] : 35 UNIT #: [id number] AGE: [address]: Fallon Henson MD SEX: M ORDER DR: CT. There is some adjacent fat stranding suggesting that this is more acute. 3. No other fractures are seen. 4. Coronary artery disease and cardiomegaly. Dictated by... Narciso Drummond Jr., M.D. THIS IS AN ELECTRONICALLY VERIFIED REPORT Narciso Drummond Jr., M.D. at 01/15/2017 4:50 PM ELEUTERIO/kang TD: 01/15/2017 14:34 JOB #: [id number] MEDICAL IMAGING REPORT Page 1 of 1
--- NOTE | ~2017-01-15 | CR181 ---
[facility] A Service of [facility] & [facility] RADIOLOGY TEXT RESULTS PATIENT: JUANITA HERNANDEZ LOCATION: [facility] : 35 UNIT #: [id number] AGE: [address]: Fallon Henson MD SEX: M ORDER DR: [id number] [address] [address] [id number] E MR#: [id number] Acc #: [id number] NAME: JUANITA HERNANDEZ : 1935 SEX: M STUDY DATE/TIME: 01/15/2017 10:03 UNIT: SED ROOM: STUDY DESCRIPTION: CR Lumbar Spine 2 or 3 Views Attending Physician: Fallon Henson M.D. Ordering Physician: Fallon Henson M.D. Primary Care Physician: Junito Nieves M.D. MEDICAL IMAGING REPORT This report is preliminary unless electronic signature is present. EXAM Lumbar spine series, 01/15/2017 10:03 hours HISTORY 81-year-old man complaining of low back pain since 01/12/2017. Patient fell down the last step of wooden stairs at home [address] abdomen and pelvis 12/10/2015 with sagittal and coronal reconstructions. FINDINGS The lumbar spine is normally aligned with no lumbar fracture or significant disc height loss. There is mild facet arthropathy in the lower lumbar levels. There is approximately 30% compression deformity of T11. This is new from CT abdomen 12/09/2016. This is also new from lateral view chest 09/06/2016 and could be acute. IMPRESSION 1. Lumbar spine demonstrates no compression fracture or malalignment. There is mild facet arthropathy in the lower lumbar levels. 2. There is approximately 30% compression deformity of T11 seen at the margin of the film. This is new from lateral view chest 09/06/2016 and could be acute. STAT * RESULT Dictated by... Hellen Kumar M.D. THIS IS AN ELECTRONICALLY VERIFIED REPORT Hellen Kumar M.D. at 01/15/2017 2:37 PM [facility] A Service of [facility] RADIOLOGY TEXT RESULTS PATIENT: JUANITA HERNANDEZ [place] [facility] [place] 35 [place] #: [id number] AGE: [address]: Fallon Henson MD SEX: M ORDER DR: PHU/cookie TD: 01/15/2017 10:54 JOB #: [id number] MEDICAL IMAGING REPORT Page 1 of 1
--- NOTE | ~2017-01-15 | CT4 ---
[facility] A Service of [facility] & [facility] RADIOLOGY TEXT RESULTS PATIENT: JUANITA HERNANDEZ LOCATION: [facility] : 35 UNIT #: [id number] AGE: [address]: Fallon Henson MD SEX: M ORDER DR: [id number] [address] [address] [id number] E MR#: [id number] Acc #: [id number] NAME: JUANITA HERNANDEZ : 1935 SEX: M STUDY DATE/TIME: 01/15/2017 12:02 UNIT: SED ROOM: STUDY DESCRIPTION: CT Abd and Pelv Wo Cont Attending Physician: Fallon Henson M.D. Ordering Physician: Fallon Henson M.D. Primary Care Physician: Junito Nieves M.D. MEDICAL IMAGING REPORT This report is preliminary unless electronic signature is present. EXAM CT abdomen and pelvis without contrast, 01/15/2017 12:02 hours HISTORY Patient complains of diffuse right chest and abdomen and pelvic pain after loss of balance and fall. Patient hit head on recliner. COMPARISON CT abdomen and pelvis, 12/10/[address] exam was performed with one or more of the following radiation dose reduction techniques: automatic exposure control, adjustment of mA and/or kV according to patient size, and iterative reconstruction. FINDINGS Images through the lung bases demonstrate mild linear fibrotic density at both bases left greater than right similar to prior study. Images through the abdomen demonstrate low-density lesions in the left and right lobes of the liver similar to prior study most consistent with liver cysts. The spleen is normal. There is diffuse fatty change in the pancreas which is stable. There are clips consistent with prior cholecystectomy. There is no bile duct dilatation. The adrenal glands are normal. The kidneys appear normal. The abdominal aorta is normal in caliber with atherosclerotic calcifications present. The stomach is contracted but appears normal. There is no small bowel distension or small bowel wall thickening. The colon demonstrates moderate stool throughout. There is no colonic wall thickening or ascites. There are colonic diverticula in the distal descending colon/sigmoid colon. [facility] A Service of [facility] & [facility] RADIOLOGY TEXT RESULTS PATIENT: JUANITA HERNANDEZ LOCATION: [facility] : 35 UNIT #: [id number] AGE: [address]: Fallon Henson MD SEX: M ORDER DR: Prostate is normal. The bladder is normal. There is compression deformity of the T11 vertebra. There is no hematoma or retropulsion seen. No lumbar fracture seen. IMPRESSION 1. No acute findings in the abdomen or pelvis. 2. There is compression deformity at T11 which is new from prior studies and could be acute. No hematoma or retropulsion is seen. Dictated by... Hellen Kumar M.D. THIS IS AN ELECTRONICALLY VERIFIED REPORT Hellen Kumar M.D. at 01/15/2017 2:37 PM Roseanna TD: 01/15/2017 14:09 JOB #: [id number] MEDICAL IMAGING REPORT Page 1 of 1
--- NOTE | ~2017-01-15 | CR243 ---
[facility] A Service of [facility] RADIOLOGY TEXT RESULTS PATIENT: JUANITA HERNANDEZ LOCATION: [facility] : 35 UNIT #: [id number] AGE: [address]: Fallon Henson MD SEX: M ORDER DR: [id number] [address] [address] [id number] E MR#: [id number] Acc #: [id number] NAME: JUANITA HERNANDEZ : 1935 SEX: M STUDY DATE/TIME: 01/15/2017 10:03 UNIT: SED ROOM: STUDY DESCRIPTION: CR Thoracic Spine 3 Views Attending Physician: Fallon Henson M.D. Ordering Physician: Fallon Henson M.D. Primary Care Physician: Junito Nieves M.D. MEDICAL IMAGING REPORT This report is preliminary unless electronic signature is present. EXAM Thoracic spine series 01/15/2017 1003 hours HISTORY Patient fell off the last step of wooden steps at home 2 days ago. Back pain. COMPARISON Chest x-ray 09/06/2016. FINDINGS AP, lateral and lateral swimmer's views are performed. The thoracic spine is normally aligned. There is approximately 30% compression deformity at T11 which is new. Mild retropulsion cannot be excluded. Consider CT followup. IMPRESSION There is approximately a 30% compression fracture of T11 new from chest x-ray 09/06/2016. There is question of mild retropulsion of the posterior vertebral body. This finding could be acute. Correlate with clinical symptoms. Consider CT followup. STAT * RESULT Dictated by... Hellen Kumar M.D. THIS IS AN ELECTRONICALLY VERIFIED REPORT Hellen Kumar M.D. at 01/15/2017 2:37 PM [facility] A Service of [facility] RADIOLOGY TEXT RESULTS PATIENT: JUANITA HERNANDEZ [id number] 35 UNIT #: [id number] AGE: [address]: Fallon Henson MD SEX: M ORDER DR: PHU/vivi TD: 01/15/2017 11:02 JOB #: [id number] MEDICAL IMAGING REPORT Page 1 of 1
--- NOTE | ~2017-01-15 | CT71 ---
[facility] A Service of [facility] RADIOLOGY TEXT RESULTS PATIENT: JUANITA HERNANDEZ LOCATION: [facility] : 35 UNIT #: [id number] AGE: [address]: Fallon Henson MD SEX: M ORDER DR: [id number] [place] [id number] E MR#: [id number] Acc #: [id number] NAME: JUANITA HERNANDEZ : 1935 SEX: M STUDY DATE/TIME: 01/15/2017 10:43 UNIT: SED ROOM: STUDY DESCRIPTION: CT Head Wo Contrast Attending Physician: Fallon eHnson M.D. Ordering Physician: Fallon Henson M.D. Primary Care Physician: Junito Nieves M.D. MEDICAL IMAGING REPORT This report is preliminary unless electronic signature is present. EXAM Head CT 01/15 INDICATIONS Patient lost balance and hit back of head on recliner today. Some dizziness since that time. FINDINGS Axial images were obtained from the base to the vertex without contrast. Comparison made with 03/09/2016. This CT exam was performed with one or more of the following radiation dose reduction techniques: automatic control, adjustment of mA and/or kV according to patient size, and iterative reconstruction. Again seen is generalized atrophy. Chronic small vessel ischemic changes are present in the white matter. Ventricular size and configuration are within normal limits. No acute infarct or hemorrhage is seen. There are no masses. There is no skull fracture. IMPRESSION No acute findings in the brain. No skull fracture. Dictated by... Narciso Drummond Jr., M.D. THIS IS AN ELECTRONICALLY VERIFIED REPORT Narciso Drummond Jr., M.D. at 01/15/2017 4:50 PM RLK/onielr TD: 01/15/2017 12:52 JOB #: [id number] [facility] A Service of [facility] RADIOLOGY TEXT RESULTS PATIENT: JUANITA HERNANDEZ LOCATION: [facility] : 35 UNIT #: [id number] AGE: [address]: Fallon Henson MD SEX: M ORDER DR: MEDICAL IMAGING REPORT Page 1 of 1
== END 2017-01-15 13:40 | disposition home or self-care (01) ==
LOC: SED 09:36
DX: S22.31XA Fracture of one rib, right side, initial encounter for closed fracture (principal); S22.089A Unspecified fracture of T11-T12 vertebra, initial encounter for closed fracture; I10 Essential (primary) hypertension; Z79.899 Other long term (current) drug therapy; W01.10XA Fall on same level from slipping, tripping and stumbling with subsequent striking against unspecified object, initial encounter
CPT/HCPCS: 70450; 71020; 71250; 72072; 72100; 74176; 99284